=== PATIENT | male | born 1950 | race Caucasian/White ===

== ENCOUNTER → 2021-06-01 | Emergency (ER) | payer OTHER, MEDICAID ==
[~2021-06-01] VITALS: Ht 185.4 cm; Wt 96.6 kg
[~2021-06-01] MED LIST: MAGN296S30 PO; NA P133E41 RC
[2021-06-01 16:41] VITALS: BP_SYST 106
--- NOTE | 2021-06-01 16:41 | NUR ---
Patient triaged and placed in waiting room. VSS and patient appears in no acute distress at this time. Accompanied by self , awaiting available bed, and MD notified of need for MSE.
--- NOTE | 2021-06-01 16:42 | NUR ---
Pt brought by daughter , A&Ox4, pt presents to ER with R flank pain/abdominal pain and constipation x 6 days, VSS, skin pink and warm, cap refill <3, respirations even and unlabored, will cont to monitor.
--- NOTE | 2021-06-01 17:30 | NUR ---
Dr Amador evaluating patient in the triage room
[2021-06-01 18:25] LABS: BASOPHILS # (AUTO) 0.1 K/uL (0.0-0.2); BASOPHILS % (AUTO) 0.6 % (0.0-2.0); EOSINOPHILS # (AUTO) 0.1 K/uL (0.0-0.4); EOSINOPHILS % (AUTO) 0.7 % (0.0-4.0); HEMATOCRIT 38.7 % (36-54); HEMOGLOBIN 12.7 g/dL (14.0-18.0); LYMPHOCYTES # (AUTO) 2.6 K/uL (1.0-5.5); LYMPHOCYTES % (AUTO) 20.4 % (20.5-51.5); MEAN CORPUSCULAR HEMOGLOBIN 30 pg (27-31); MEAN CORPUSCULAR HGB CONC 33 % (32-36); MEAN CORPUSCULAR VOLUME 91 fL (79.0-98.0); MONOCYTES # (AUTO) 0.6 K/uL (0.0-1.0); MONOCYTES % (AUTO) 4.4 % (1.7-9.3); NEUTROPHILS # (AUTO) 9.3 K/uL (1.8-7.7); NEUTROPHILS % (AUTO) 73.9 % (40.0-70.0); PLATELET COUNT (AUTO) 345 K/uL (130-430); RED BLOOD CELL COUNT(AUTO) 4.26 MIL/uL (4.2-6.2); RED CELL DISTRIBUTION WIDTH 13.4 % (9.0-15.0); WHITE BLOOD COUNT (AUTO) 12.5 K/uL (4.8-10.8)
[2021-06-01 19:12] LABS: CREATININE 1.24 mg/dL (0.55-1.30); POTASSIUM 3.9 mmol/L (3.5-5.1)
[2021-06-01 19:21] LABS: PROTHROMBIN TIME 10.6 SECS (9.5-12.5)
[2021-06-01 19:22] LABS: ALBUMIN 3.7 g/dL (3.4-4.8); TOTAL BILIRUBIN 0.2 mg/dL (0.0-1.0)
[2021-06-01 19:49] LABS: C-REACTIVE PROTEIN QUANT 1.4 mg/dL (0-0.5)
--- NOTE | 2021-06-01 20:20 | NUR ---
Dr Amador explaining results to patient and patient's daughter at this time.
[2021-06-01 20:56] VITALS: BP_SYST 106
--- NOTE | 2021-06-01 20:56 | NUR ---
Patient given written and verbal discharge instructions and verbalizes understanding. ER MD discussed with patient the results and treatment provided. Patient in stable condition. ID arm band removed. Rx of Magnesium citrate and fleet enema given. Patient educated on pain management and to follow up with PMD. Pain Scale 2/10. Opportunity for questions provided and answered. Medication side effect fact sheet provided.
== END | disposition home or self-care (01) ==
LOC: SED 15:52
DX: K59.00 Constipation, unspecified (principal); Z79.899 Other long term (current) drug therapy
CPT/HCPCS: 36415; 76376; 80053; 82150; 83605; 83615; 83690; 84484; 85025; 85610-TC; 85730-TC; 86140; 99284